=== PATIENT | female | born 1990 | race Caucasian/White ===

== ENCOUNTER 2016-08-19 18:44 | Emergency (ER) | payer OTHER ==
[2016-08-19 18:57] VITALS: RESP 20
[2016-08-19] MEDS ORDERED: IPRATROPIUM-ALBUTEROL 3 ML NEB INHALATION STA (19:12)
--- NOTE | 2016-08-19 19:12 | ED ---
General Adult HPI - General Chief complaint: Shortness of Breath Stated complaint: difficulty breathing Time Seen by Provider: 08/19/16 18:58 Source: patient, RN notes reviewed Mode of arrival: ambulatory Limitations: no limitations - History of Present Illness Initial comments: Patient is a 26-year-old female presents emergency room for evaluation of cough and congestion. Patient states she developed a cold for the past week. Recently she woke up this morning and feeling more short of breath after coughing. Patient states she had similar symptoms when she had pneumonia. Patient states she has had on and off hot flashes and chills. Patient denies any known fevers. Patient states she has a slight headache. Patient states she has throat pain every time she coughs. Patient denies nausea, vomiting, diarrhea, constipation, abdominal pain. Patient does state she smokes occasionally. Patient denies history of asthma. Patient states she is up-to- date in immunizations besides influenza vaccine. - Related Data Previous Rx's Medication Instructions Recorded Albuterol Inhaler [Ventolin Hfa 1 - 2 puff INHALATION Q6HR PRN #1 08/19/16 Inhaler] inhaler predniSONE 50 mg PO DAILY #4 tab 08/19/16 Allergies Allergy/AdvReac Type Severity Reaction Status Date / Time amoxicillin trihydrate Allergy Nausea & Verified 08/19/16 19:30 [From Augmentin] Vomiting potassium clavulanate Allergy Nausea & Verified 08/19/16 19:30 [From Augmentin] Vomiting Review of Systems ROS Statement: Those systems with pertinent positive or pertinent negative responses have been documented in the HPI. ROS Other: All systems not noted in ROS Statement are negative. 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 Limitations: no limitations General appearance: alert, in no apparent distress Head exam: Present: atraumatic, normocephalic, normal inspection Eye exam: Present: normal appearance ENT exam: Present: normal exam, normal oropharynx, mucous membranes moist, TM's normal bilaterally, normal external ear exam Neck exam: Present: normal inspection, full ROM. Absent: tenderness, lymphadenopathy Respiratory exam: Present: normal lung sounds bilaterally. Absent: respiratory distress Cardiovascular Exam: Present: regular rate, normal rhythm, normal heart sounds Extremities exam: Present: normal inspection Back exam: Present: normal inspection Neurological exam: Present: alert, oriented X3, CN II-XII intact, normal gait Psychiatric exam: Present: normal affect, normal mood Skin exam: Present: warm, dry, intact, normal color. Absent: rash Course Vital Signs 08/19/16 08/19/16 08/19/16 18:54 19:16 19:24 Temperature 98.4 F Pulse Rate 102 H 84 84 Respiratory 20 Rate Blood Pressure 144/63 O2 Sat by Pulse 95 Oximetry 08/19/16 21:07 Temperature 98.2 F Pulse Rate 94 Respiratory 20 Rate Blood Pressure 130/76 O2 Sat by Pulse 98 Oximetry Medical Decision Making - Medical Decision Making Patient's 26-year-old female presents to the emergency room for evaluation of cough and congestion. Influenza negative. Chest x-ray shows no significant findings. Will treat patient for bronchitis. Results discussed with patient. Return parameters discussed. Case discussed with Dr. Blackmon. - Lab Data Lab Results 08/19/16 Range/Units 19:26 Influenza Type A RNA Not Detected (Not Detectd) Influenza Type B (PCR) Not Detected (Not Detectd) - Radiology Data Radiology results: report reviewed, image reviewed Disposition Clinical Impression: Bronchitis Disposition: HOME SELF-CARE Condition: Good Instructions: Acute Bronchitis (ED) Additional Instructions: Take medications as needed. Please follow-up with primary care provider for reevaluation in 24-48 hours. If any new symptom arises or symptoms worsen, return to ER as soon as possible. Prescriptions: Albuterol Inhaler [Ventolin Hfa Inhaler] 1 - 2 puff INHALATION Q6HR PRN #1 inhaler PRN Reason: Shortness Of Breath predniSONE 50 mg PO DAILY #4 tab Referrals: Maxime Lyman DO [Primary Care Provider] - 1-2 days Time of Disposition: 20:53
--- NOTE | 2016-08-19 20:03 | XR ---
EXAMINATION TYPE: XR chest 2V DATE OF EXAM: 08/19/2016 7:35 PM COMPARISON: 04/02/2016 INDICATION: Cough TECHNIQUE: Single frontal view of the chest is obtained. FINDINGS: The heart size is normal. The pulmonary vasculature is normal. The lungs are clear. IMPRESSION: 1. No acute pulmonary process.
[2016-08-19] MEDS ORDERED: predniSONE 50 MG TAB PO STA (20:58)
[2016-08-19 21:09] VITALS: BP 130/76; PULSE 94; TEMP 98.2
== END 2016-08-19 21:09 | disposition home or self-care (01) ==
LOC: EC 18:44
DX: J20.9 Acute bronchitis, unspecified (principal); R51 Headache; Z87.01 Personal history of pneumonia (recurrent); Z88.0 Allergy status to penicillin; Z88.8 Allergy status to other drugs, medicaments and biological substances
CPT/HCPCS: 99285; 94640; 87502; 71020; J7512

== ENCOUNTER 2016-09-11 18:13 | Emergency (ER) | payer OTHER ==
[2016-09-11 18:22] VITALS: BP 131/74; PULSE 108; RESP 20; TEMP 97
--- NOTE | 2016-09-11 18:30 | ED ---
General Adult HPI - General Chief complaint: Upper Respiratory Infection Stated complaint: Congestion/ heart horton Time Seen by Provider: 09/11/16 18:20 Source: patient, RN notes reviewed Mode of arrival: ambulatory Limitations: no limitations - History of Present Illness Initial comments: This is a 26-year-old female who presents to the emergency department complaining of a sore throat and a cough suggestive per patient denies any chest pain or difficulty breathing. Patient states she thought her chest was a little bit tight earlier in the day but is cleared up at this point. Patient states she's is a smoker but she is trying to quit. Patient denies any fever or chills. Patient denies abdominal pain patient denies any nausea vomiting diarrhea. - Related Data Previous Rx's Medication Instructions Recorded Albuterol Inhaler [Ventolin Hfa 1 - 2 puff INHALATION Q6HR PRN #1 08/19/16 Inhaler] inhaler predniSONE 50 mg PO DAILY #4 tab 08/19/16 Azithromycin [Zithromax Tri-Frantz] 500 mg PO DAILY #3 tab 09/11/16 Allergies Allergy/AdvReac Type Severity Reaction Status Date / Time amoxicillin trihydrate Allergy Nausea & Verified 09/11/16 18:22 [From Augmentin] Vomiting potassium clavulanate Allergy Nausea & Verified 09/11/16 18:22 [From Augmentin] Vomiting Review of Systems ROS Statement: Those systems with pertinent positive or pertinent negative responses have been documented in the HPI. ROS Other: All systems not noted in ROS Statement are negative. 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 Patient is nontoxic and well- hydrated and is in mild distress. ENT: Neck is soft and supple. No significant lymphadenopathy is noted. Oropharynx is erythematous. Moist mucous membranes. Neck has full range of motion without eliciting any pain. EYES: The sclera were anicteric and conjunctiva were pink and moist. Extraocular movements were intact and pupils were equal round and reactive to light. Eyelids were unremarkable. PULMONARY: Unlabored respirations. Good breath sounds bilaterally. No audible rales rhonchi or wheezing was noted. CARDIOVASCULAR: There is a regular rate and rhythm without any murmurs gallops or rubs. ABDOMEN: Soft and nontender with normal bowel sounds. No palpable organomegaly was noted. There is no palpable pulsatile mass. SKIN: Skin is clear with no lesions or rashes and otherwise unremarkable. NEUROLOGIC: Patient is alert and oriented x3. Cranial nerves II through XII are grossly intact. Motor and sensory are also intact. Normal speech, volume and content. Symmetrical smile. MUSCULOSKELETAL: Normal extremities with adequate strength and full range of motion. No lower extremity swelling or edema. No calf tenderness. LYMPHATICS: No significant lymphadenopathy is noted PSYCHIATRIC: Normal psychiatric evaluation. Normal interpersonal interactions appears functionally intact in deals appropriately with others. No signs of depression. No signs of anxiety. Limitations: no limitations Course Vital Signs 09/11/16 18:20 Temperature 97 F L Pulse Rate 108 H Respiratory 20 Rate Blood Pressure 131/74 O2 Sat by Pulse 100 Oximetry Disposition Clinical Impression: Acute bronchitis, Pharyngitis Disposition: HOME SELF-CARE Condition: Good Prescriptions: Azithromycin [Zithromax Tri-Frantz] 500 mg PO DAILY #3 tab Referrals: Maxime Lyman DO [Primary Care Provider] - 1-2 days Time of Disposition: 18:30
== END 2016-09-11 18:45 | disposition home or self-care (01) ==
LOC: EC 18:13
DX: J20.9 Acute bronchitis, unspecified (principal); J02.9 Acute pharyngitis, unspecified; F17.200 Nicotine dependence, unspecified, uncomplicated; Z88.0 Allergy status to penicillin; Z88.8 Allergy status to other drugs, medicaments and biological substances
CPT/HCPCS: 99283

== ENCOUNTER 2017-01-09 20:40 | Emergency (ER) | payer OTHER ==
[2017-01-09 20:53] VITALS: BP 129/83; PULSE 98; RESP 18; TEMP 98.8
--- NOTE | 2017-01-09 21:59 | XR ---
EXAMINATION TYPE: XR ankle complete RT DATE OF EXAM: 01/09/2017 COMPARISON: NONE HISTORY: Pain TECHNIQUE: 3 views FINDINGS: Ankle mortise is anatomic. I see no fracture nor dislocation. There are plantar and Edwar s calcaneal spurs. There is mild soft tissue swelling around the ankle joint. IMPRESSION: No fracture. Mild soft tissue swelling.
--- NOTE | 2017-01-09 22:00 | XR ---
EXAMINATION TYPE: XR foot complete RT DATE OF EXAM: 01/09/2017 COMPARISON: NONE HISTORY: Pain and swelling TECHNIQUE: 3 views FINDINGS: Metatarsals are intact. I see no fracture nor dislocation. There is a plantar calcaneal spu r. There are no erosions. IMPRESSION: No acute abnormality of the right foot.
--- NOTE | 2017-01-09 22:11 | ED ---
Lower Extremity Injury HPI - General Chief Complaint: Extremity Injury, Lower Stated Complaint: ankle pain Time Seen by Provider: 01/09/17 20:59 Source: patient, family, RN notes reviewed Mode of arrival: ambulatory Limitations: no limitations - History of Present Illness Initial Comments: This is a 26 year old female with right ankle pain and swelling for 2 days. She reports she was playing badmitten and tripped and roller her ankle. She reports she felt a pop. She states over ej past 2 days she has been elevating and icing the ankle. Denies any peripheral paresthesisas. She also reports a possibility of . She states that she has no other associated symptoms. - Related Data Previous Rx's Medication Instructions Recorded Ibuprofen [Motrin] 600 mg PO Q6HR PRN #20 tab 01/09/17 Allergies Allergy/AdvReac Type Severity Reaction Status Date / Time amoxicillin trihydrate Allergy Nausea & Verified 01/09/17 20:53 [From Augmentin] Vomiting potassium clavulanate Allergy Nausea & Verified 01/09/17 20:53 [From Augmentin] Vomiting Review of Systems ROS Statement: Those systems with pertinent positive or pertinent negative responses have been documented in the HPI. ROS Other: All systems not noted in ROS Statement are negative. 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 Limitations: no limitations General appearance: alert, in no apparent distress Head exam: Present: atraumatic, normocephalic, normal inspection Eye exam: Present: normal appearance, PERRL, EOMI. Absent: scleral icterus, conjunctival injection, periorbital swelling ENT exam: Present: normal exam, mucous membranes moist Neck exam: Present: normal inspection. Absent: tenderness, meningismus, lymphadenopathy Respiratory exam: Present: normal lung sounds bilaterally. Absent: respiratory distress, wheezes, rales, rhonchi, stridor Cardiovascular Exam: Present: regular rate, normal rhythm, normal heart sounds. Absent: systolic murmur, diastolic murmur, rubs, gallop, clicks GI/Abdominal exam: Present: soft, normal bowel sounds. Absent: distended, tenderness, guarding, rebound, rigid Extremities exam: Present: normal inspection, full ROM, normal capillary refill , other (left ankle mild swelling nad pain over lateral malleoulus. ). Absent: tenderness, pedal edema, joint swelling, calf tenderness Back exam: Present: normal inspection Neurological exam: Present: alert, oriented X3, CN II-XII intact Psychiatric exam: Present: normal affect, normal mood Skin exam: Present: warm, dry, intact, normal color. Absent: rash Course Vital Signs 01/09/17 01/09/17 20:50 22:20 Temperature 98.8 F 98.8 F Pulse Rate 98 98 Respiratory 18 18 Rate Blood Pressure 129/83 129/83 O2 Sat by Pulse 98 98 Oximetry Medical Decision Making - Medical Decision Making This is a 26 year old female with right ankle pain and swelling for 2 days. She reports she was playing badmitten and tripped and roller her ankle. She reports she felt a pop. She states over ej past 2 days she has been elevating and icing the ankle. HCG is negative. Patient does have mild swelling over lateral malleoulus. Xrays reviewed, no fracture noted. Patient will be given an sourav wrap and discharged. Advised to follo lior with orthopedic. Patient agrees to treatment plan and will comply. - Lab Data Lab Results 01/09/17 Range/Units 21:12 Urine HCG, Qual Not Detected (Not Detectd) Disposition Clinical Impression: Ankle sprain Disposition: HOME SELF-CARE Condition: Good Instructions: Ankle Sprain (ED) Additional Instructions: Patient advised to rest, ice, elevate extremity. Wear Sourav wrap. Patient should follow-up with Orthopedic if symptoms continue to persist. Prescriptions: Ibuprofen [Motrin] 600 mg PO Q6HR PRN #20 tab PRN Reason: Pain Referrals: Maxime Lyman DO [Primary Care Provider] - 1-2 days Time of Disposition: 22:09
== END 2017-01-09 22:20 | disposition home or self-care (01) ==
LOC: EC 20:40
DX: S93.401A Sprain of unspecified ligament of right ankle, initial encounter (principal); Z88.0 Allergy status to penicillin; X50.9XXA Other and unspecified overexertion or strenuous movements or postures, initial encounter; Y93.89 Activity, other specified
CPT/HCPCS: 81025; 99283

== ENCOUNTER 2021-04-01 14:25 | Emergency (ER) | payer OTHER ==
[2021-04-01 15:01] VITALS: RESP 18
[2021-04-01 15:29] VITALS: BP 116/47; PULSE 66
[2021-04-01] MEDS ORDERED: KETOROLAC 15 MG/ML 1 ML VIAL IVP STA (15:45)
[2021-04-01] MEDS ORDERED: ONDANSETRON 4 MG/2 ML VIAL IVP STA (15:45)
[2021-04-01] MEDS ORDERED: SODIUM CHLORIDE 0.9% 1,000 ML IV STA (15:45)
[2021-04-01 16:13] LABS: Appearance,Urine Turbid (Clear); Bacteria,Urine Moderate /hpf; Bilirubin,Urine Negative (Negative); Blood,Urine Large (Negative); Color,Urine Dark Brown; Glucose,Urine (UA) Negative (Negative); Ketones,Urine Trace (Negative); Leukocyte Esterase,Urine Small (Negative); Mucus,Urine Many /hpf; Nitrite,Urine Negative (Negative); PH, Urine 5.5 (5.0-8.0); Protein,Urine 1+ (Negative); RBC,Urine >182 /hpf (0-5); Specific Gravity,Urine 1.022 (1.001-1.035); Squamous Epithelial Cell,Urine 8 /hpf (0-4); WBC,Urine 39 /hpf (0-5)
[2021-04-01 16:23] LABS: ALT 21 U/L (4-34); AST 22 U/L (14-36); African American GFR (CKD) >90 (>60 ml/min/1.73 sqM); Albumin 4.2 g/dL (3.5-5.0); Alkaline Phosphatase 114 U/L (38-126); Amylase 40 U/L (30-110); Anion Gap 9 mmol/L; Blood Urea Nitrogen 9 mg/dL (7-17); Calcium 9.7 mg/dL (8.4-10.2); Carbon Dioxide 23 mmol/L (22-30); Chloride 105 mmol/L (98-107); Glucose 116 mg/dL (74-99); Lipase 16 U/L (23-300); Non-African American GFR(CKD) >90 (>60 ml/min/1.73 sqM); Potassium 4.5 mmol/L (3.5-5.1); Sodium 137 mmol/L (137-145); Total Bilirubin 0.6 mg/dL (0.2-1.3); Total Protein 7.5 g/dL (6.3-8.2)
[2021-04-01 16:26] LABS: Basophils # (A) 0.1 k/uL (0-0.2); Basophils % (A) 0 %; Eosinophils # (A) 0.2 k/uL (0-0.7); Eosinophils % (A) 1 %; HCT 46.5 % (34.0-46.0); HGB 15.7 gm/dL (11.4-16.0); Lymphocytes # (A) 2.5 k/uL (1.0-4.8); Lymphocytes % (A) 13 %; MCH 28.6 pg (25.0-35.0); MCHC 33.8 g/dL (31.0-37.0); MCV 84.6 fL (80.0-100.0); Mean Platelet Volume 8.2; Monocytes # (A) 0.8 k/uL (0-1.0); Monocytes % (A) 5 %; Neutrophils # (A) 15.2 k/uL (1.3-7.7); Neutrophils % (A) 81 %; Platelet Count 427 k/uL (150-450); RDW 13.4 % (11.5-15.5); WBC 18.8 k/uL (3.8-10.6)
--- NOTE | 2021-04-01 16:51 | CT ---
EXAMINATION TYPE: CT abdomen pelvis w con DATE OF EXAM: 04/01/2021 COMPARISON: HISTORY: Abdominal pain, stabbing pain in back CT DLP: 2868.4 mGycm Automated exposure control for dose reduction was used. CONTRAST: Performed with IV Contrast, patient injected with 100 mL of Isovue 300. Lung bases are clear of infiltrate. There is no pleural effusion. Heart size is normal. There is no p ericardial effusion. Liver spleen stomach pancreas gallbladder appear normal. The bile ducts are not dilated. There is no adrenal mass. Kidneys show satisfactory contrast opacification. There is delayed right si de pyelogram. There is 4 mm obstructing calculus at the right ureteropelvic junction. There is no ret roperitoneal adenopathy. Uterus is anteverted. Bladder distends smoothly. There is no inguinal hernia . There is no free fluid in the pelvis. There is no mesenteric edema. There is no ascites or free air . There is no evidence of a bowel obstruction. There are 2 large cysts on the left ovary that measure 4 cm each. Appendix appears normal. Lumbar vertebra have normal spacing and alignment. Posterior elements are intact. There is no katie salma fracture. The bony pelvis is intact. Sacroiliac joints are intact. IMPRESSION: Obstructing calculus at the right ureteral pelvic junction with mild right-sided hydronephrosis. Large left-sided ovarian cysts.
[2021-04-01] MEDS ORDERED: cefTRIAXone IN SWFI 1,000 MG/10 ML SYRINGE IVP STA (16:58)
--- NOTE | 2021-04-01 16:59 | ED ---
General Adult HPI - General Chief complaint: Nausea/Vomiting/Diarrhea Stated complaint: weakness Time Seen by Provider: 04/01/21 15:33 Source: patient, RN notes reviewed Mode of arrival: ambulatory Limitations: no limitations - History of Present Illness Initial comments: Patient is a 30-year-old female that presents to emergency department complaining of right-sided low back pain with radiation to her groin. She notes that she does have a history of UTIs and kidney infections. She notes that she's also had a several day history of discomfort with urination. She notes that she's also been nauseous. She did denied any fevers vomiting or other a bdominal pain. Patient didn't appear to be in mild distress while lying in bed during the exam interview. She noted that her pain was approximately 9-10 out of 10 with no relief from any at home medications. She denied any aggravating or alleviating factors. She denied chest pain shortness of breath headache vomiting diarrhea constipation fever fatigue chills. - Related Data Previous Rx's Medication Instructions Recorded Ibuprofen [Motrin] 600 mg PO Q6HR PRN #20 tab 01/09/17 Ciprofloxacin HCl [Cipro] 500 mg PO Q12HR #20 tablet 04/01/21 Ketorolac [Toradol] 10 mg PO Q8HR #15 tab 04/01/21 Tamsulosin [Flomax] 0.4 mg PO DAILY #7 cap 04/01/21 Allergies Allergy/AdvReac Type Severity Reaction Status Date / Time amoxicillin trihydrate Allergy Nausea & Verified 04/01/21 14:57 [From Augmentin] Vomiting potassium clavulanate Allergy Nausea & Verified 04/01/21 14:57 [From Augmentin] Vomiting Review of Systems ROS Statement: Those systems with pertinent positive or pertinent negative responses have been documented in the HPI. ROS Other: All systems not noted in ROS Statement are negative. 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, ovarian cyst History of Any Multi-Drug Resistant Organisms: None Reported Past Surgical History: No Surgical Hx Reported, Orthopedic Surgery, Tonsillectomy Additional Past Surgical History / Comment(s): wrist surgery Past Psychological History: No Psychological Hx Reported Smoking Status: Current every day smoker Past Alcohol Use History: Occasional Past Drug Use History: None Reported General Exam Limitations: no limitations General appearance: alert, in no apparent distress, obese Head exam: Present: atraumatic, normocephalic, normal inspection Eye exam: Present: normal appearance, PERRL, EOMI. Absent: scleral icterus, co njunctival injection, periorbital swelling ENT exam: Present: normal exam, mucous membranes moist Neck exam: Present: normal inspection. Absent: tenderness, meningismus, lymphadenopathy Respiratory exam: Present: normal lung sounds bilaterally. Absent: respiratory distress, wheezes, rales, rhonchi, stridor Cardiovascular Exam: Present: regular rate, normal rhythm, normal heart sounds. Absent: systolic murmur, diastolic murmur, rubs, gallop, clicks GI/Abdominal exam: Present: soft, normal bowel sounds. Absent: distended, tenderness, guarding, rebound, rigid Extremities exam: Present: normal inspection, full ROM, normal capillary refill. Absent: tenderness, pedal edema, joint swelling, calf tenderness Neurological exam: Present: alert, oriented X3 Psychiatric exam: Present: normal affect, normal mood Skin exam: Present: warm, dry, intact, normal color. Absent: rash Course Vital Signs 04/01/21 04/01/21 04/01/21 14:58 15:28 17:03 Temperature 98 F 99.1 F 99 F Pulse Rate 61 66 Respiratory 18 18 Rate Blood Pressure 116/47 O2 Sat by Pulse 93 L 98 Oximetry Medical Decision Making - Medical Decision Making 30-year-old female complaining of right back pain with radiation to her groin, history of UTIs and kidney stone. Labs, CT of pelvis, 15 mg Toradol, 4 mg of Zofran ordered. Labs: White blood cells 18.8 CMP unremarkable, urine shows greater than 182 red blood cells 39 white blood cells and moderate bacteria. CT shows a 4 mm obstructing right renal calculi with mild hydronephrosis. 1 g of Rocephin ordered for kidney infection. Discussion with patient on discharge home versus admit. Patient states that she was to go home on antibiotic therapy as she is adamant about not staying in the hospital. Pain medication, Flomax, antibiotics we sent to pharmacy. Case discussed with Dr. Goldsmith, patient can discharge home on antibiotics with close follow-up to primary care and urologist as needed. - Lab Data Result diagrams: 04/01/21 15:47 04/01/21 15:47 Lab Results 04/01/21 04/01/21 04/01/21 Range/Units 15:47 15:47 15:47 WBC 18.8 H (3.8-10.6) k/uL RBC 5.50 H (3.80-5.40) m/uL Hgb 15.7 (11.4-16.0) gm/dL Hct 46.5 H (34.0-46.0) % MCV 84.6 (80.0-100.0) fL MCH 28.6 (25.0-35.0) pg MCHC 33.8 (31.0-37.0) g/dL RDW 13.4 (11.5-15.5) % Plt Count 427 (150-450) k/uL MPV 8.2 Neutrophils % 81 % Lymphocytes % 13 % Monocytes % 5 % Eosinophils % 1 % Basophils % 0 % Neutrophils # 15.2 H (1.3-7.7) k/uL Lymphocytes # 2.5 (1.0-4.8) k/uL Monocytes # 0.8 (0-1.0) k/uL Eosinophils # 0.2 (0-0.7) k/uL Basophils # 0.1 (0-0.2) k/uL Sodium 137 (137-145) mmol/L Potassium 4.5 (3.5-5.1) mmol/L Chloride 105 (98-107) mmol/L Carbon Dioxide 23 (22-30) mmol/L Anion Gap 9 mmol/L BUN 9 (7-17) mg/dL Creatinine 0.61 (0.52-1.04) mg/dL Est GFR (CKD-EPI)AfAm >90 (>60 ml/min/1.73 sqM) Est GFR (CKD-EPI)NonAf >90 (>60 ml/min/1.73 sqM) Glucose 116 H (74-99) mg/dL Calcium 9.7 (8.4-10.2) mg/dL Total Bilirubin 0.6 (0.2-1.3) mg/dL AST 22 (14-36) U/L ALT 21 (4-34) U/L Alkaline Phosphatase 114 (38-126) U/L Total Protein 7.5 (6.3-8.2) g/dL Albumin 4.2 (3.5-5.0) g/dL Amylase 40 (30-110) U/L Lipase 16 L (23-300) U/L Urine Color Dark Brown Urine Appearance Turbid H (Clear) Urine pH 5.5 (5.0-8.0) Ur Specific [place] 1.022 (1.001-1.035) Urine Protein 1+ H (Negative) Urine Glucose (UA) Negative (Negative) Urine Ketones Trace H (Negative) Urine Blood Large H (Negative) Urine Nitrite Negative (Negative) Urine Bilirubin Negative (Negative) Urine Urobilinogen 2.0 (<2.0) mg/dL Ur Leukocyte Esterase Small H (Negative) Urine RBC >182 H (0-5) /hpf Urine WBC 39 H (0-5) /hpf Ur Squamous Epith Cells 8 H (0-4) /hpf Urine Bacteria Moderate H (None) /hpf Urine Mucus Many H (None) /hpf Urine HCG, Qual (Not Detectd) 04/01/21 Range/Units 15:47 WBC (3.8-10.6) k/uL RBC (3.80-5.40) m/uL Hgb (11.4-16.0) gm/dL Hct (34.0-46.0) % MCV (80.0-100.0) fL MCH (25.0-35.0) pg MCHC (31.0-37.0) g/dL RDW (11.5-15.5) % Plt Count (150-450) k/uL MPV Neutrophils % % Lymphocytes % % Monocytes % % Eosinophils % % Basophils % % Neutrophils # (1.3-7.7) k/uL Lymphocytes # (1.0-4.8) k/uL Monocytes # (0-1.0) k/uL Eosinophils # (0-0.7) k/uL Basophils # (0-0.2) k/uL Sodium (137-145) mmol/L Potassium (3.5-5.1) mmol/L Chloride (98-107) mmol/L Carbon Dioxide (22-30) mmol/L Anion Gap mmol/L BUN (7-17) mg/dL Creatinine (0.52-1.04) mg/dL Est GFR (CKD-EPI)AfAm (>60 ml/min/1.73 sqM) Est GFR (CKD-EPI)NonAf (>60 ml/min/1.73 sqM) Glucose (74-99) mg/dL Calcium (8.4-10.2) mg/dL Total Bilirubin (0.2-1.3) mg/dL AST (14-36) U/L ALT (4-34) U/L Alkaline Phosphatase (38-126) U/L Total Protein (6.3-8.2) g/dL Albumin (3.5-5.0) g/dL Amylase (30-110) U/L Lipase (23-300) U/L Urine Color Urine Appearance (Clear) Urine pH (5.0-8.0) Ur Specific [place] (1.001-1.035) Urine Protein (Negative) Urine Glucose (UA) (Negative) Urine Ketones (Negative) Urine Blood (Negative) Urine Nitrite (Negative) Urine Bilirubin (Negative) Urine Urobilinogen (<2.0) mg/dL Ur Leukocyte Esterase (Negative) Urine RBC (0-5) /hpf Urine WBC (0-5) /hpf Ur Squamous Epith Cells (0-4) /hpf Urine Bacteria (None) /hpf Urine Mucus (None) /hpf Urine HCG, Qual Not Detected (Not Detectd) - Radiology Data Radiology results: report reviewed, image reviewed CT of the abdomen and pelvis: Obstructing calculus at the right ureteropelvic junction with mild right-sided hydronephrosis. Large left-sided ovarian cyst. Calculus measuring 4 mm. Disposition Clinical Impression: Pyelonephritis, Nephrolithiasis Disposition: HOME SELF-CARE Condition: Stable Instructions (If sedation given, give patient instructions): Kidney Infection (ED), Kidney Stones (ED) Additional Instructions: Please return to the Emergency Department if symptoms worsen or any other concerns. Take antibiotics as prescribed until complete. Use pain medication as prescribed. Follow-up primary care 1-2 days. Follow-up with urologist as soon as possible. Is patient prescribed a controlled substance at d/c from ED?: No Referrals: Maxime Lyman DO [Primary Care Provider] - 1-2 days Ashwin Crow MD [STAFF PHYSICIAN] - 1-2 days Time of Disposition: 17:34
[2021-04-01 17:03] VITALS: TEMP 99
[2021-04-01] MEDS ORDERED: HYDROmorphone 1 MG/ML 1 ML SYRINGE IVP STA (17:32)
[2021-04-01] MEDS ORDERED: ACET/COD 300 MG/30 MG STARTER PACK 6 TAB BTL PO STA (17:33)
== END 2021-04-01 18:12 | disposition home or self-care (01) ==
LOC: EC 14:25
DX: N10 Acute pyelonephritis (principal); N20.0 Calculus of kidney; Z87.440 Personal history of urinary (tract) infections; Z88.0 Allergy status to penicillin; Z88.1 Allergy status to other antibiotic agents; F17.200 Nicotine dependence, unspecified, uncomplicated
CPT/HCPCS: 99284; 96374; 96375 ×3; 96361; 36415; 80053; 82150; 83690; 85025; 81001; 81025; 87086; 74177; J2405; J0696; J1170; J1885; Q9967

== ENCOUNTER 2021-04-06 20:22 | Emergency (ER) | payer OTHER ==
--- NOTE | 2021-04-06 22:16 | XR ---
EXAMINATION: XR chest 2V DATE AND TIME: 04/06/2021 10:03 PM CLINICAL INDICATION: PHH; Cough/pain TECHNIQUE: Departmental protocol COMPARISON: 08/19/2016 FINDINGS: The overlying soft tissues are prominent. This fracture decreases radiographic sensitivity and specif icity for lung parenchymal findings. The arborization of the pulmonary vasculature bilaterally is les s well delineated on the present examination, compared to the prior, and this raises suspicion for th e possibility of atypical pneumonia. The pleural spaces are negative. The cardiac silhouette is not enlarged. The remainder of the mediastinal silhouette is unremarkable. The skeletal structures and soft tissues are negative for acute findings. IMPRESSION: Very subtle findings.
[2021-04-06] MEDS ORDERED: IPRATROPIUM-ALBUTEROL 3 ML NEB INHALATION STA (23:16)
[2021-04-06] MEDS ORDERED: DOXYCYCLINE 100 MG CAP PO STA (23:23)
--- NOTE | 2021-04-06 23:24 | ED ---
URI HPI - General Chief Complaint: Upper Respiratory Infection Stated Complaint: Cough Source: patient, family Mode of arrival: ambulatory Limitations: no limitations - History of Present Illness Initial Comments: 30-year-old female presents with complaints of nasal congestion, cough, sore throat, nausea and fever. She's had symptoms for 3 days. She denies previous history of asthma. She is a smoker. States she's been taking [id number] cough medicine without improvement. She reports the shortness of breath. No concern for . She is vaccinated against Covid. No other alleviating, precipitating or modifying factors - Related Data Previous Rx's Medication Instructions Recorded Ciprofloxacin HCl [Cipro] 500 mg PO Q12HR #20 tablet 04/01/21 Ketorolac [Toradol] 10 mg PO Q8HR #15 tab 04/01/21 Tamsulosin [Flomax] 0.4 mg PO DAILY #7 cap 04/01/21 Albuterol Sulfate [Proair Hfa] 1 - 2 puff INHALATION Q4HR PRN 04/06/21 #8.5 gm Doxycycline Monohydrate [Monodox] 100 mg PO Q12HR #20 cap 04/06/21 Allergies Allergy/AdvReac Type Severity Reaction Status Date / Time amoxicillin trihydrate Allergy Nausea & Verified 04/06/21 22:19 [From Augmentin] Vomiting potassium clavulanate Allergy Nausea & Verified 04/06/21 22:19 [From Augmentin] Vomiting Review of Systems ROS Statement: Those systems with pertinent positive or pertinent negative responses have been documented in the HPI. ROS Other: All systems not noted in ROS Statement are negative. 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 Absent: scleral icterus, conjunctival injection, periorbital swelling ENT exam: Present: normal exam, mucous membranes moist Neck exam: Present: normal inspection. Absent: tenderness, meningismus, lymphadenopathy Respiratory exam: Present: wheezes, other (tachypnia). Absent: respiratory distress, rales, rhonchi, stridor Cardiovascular Exam: Present: regular rate, normal rhythm, normal heart sounds. Absent: systolic murmur, diastolic murmur, rubs, gallop, clicks GI/Abdominal exam: Present: soft, normal bowel sounds. Absent: distended, tenderness, guarding, rebound, rigid Extremities exam: Present: normal inspection, full ROM, normal capillary refill. Absent: tenderness, pedal edema, joint swelling, calf tenderness Back exam: Present: normal inspection Neurological exam: Present: alert, oriented X3, CN II-XII intact Psychiatric exam: Present: normal affect, normal mood Skin exam: Present: warm, dry, intact, normal color. Absent: rash Course Vital Signs 04/06/21 04/07/21 04/07/21 20:41 00:03 00:15 Temperature 98.3 F Pulse Rate 88 88 88 Respiratory 20 Rate Blood Pressure 108/68 O2 Sat by Pulse 91 L Oximetry 04/07/21 00:21 Temperature 98.9 F Pulse Rate 99 Respiratory 18 Rate Blood Pressure 129/83 O2 Sat by Pulse 98 Oximetry Medical Decision Making - Medical Decision Making Upon arrival patient is placed into room 4. There was and physical exam was performed. Patient is swabbed for Covid and flu. Swab returns and is negative. Chest x-ray demonstrates atypical pneumonia. She is given a dose of doxycycline and a DuoNeb breathing treatment. Patient will be discharged home with albuterol inhaler and a course of doxycycline. Instructed follow up with her primary care doctor in 2-4 days. Return to the emergency room for any new or worsening symptoms patient was in agreement with the treatment plan was di scharged home in stable condition - Lab Data Lab Results 04/06/21 Range/Units 21:56 Influenza Type A (PCR) Not Detected (Not Detectd) Influenza Type B (PCR) Not Detected (Not Detectd) RSV (PCR) Not Detected (Not Detectd) SARS-CoV-2 (PCR) Not Detected (Not Detectd) Disposition Clinical Impression: Cough, Atypical pneumonia Disposition: HOME SELF-CARE Condition: Stable Instructions (If sedation given, give patient instructions): Pneumonia (ED) Additional Instructions: Please follow with your primary care doctor in 2-4 days. Return to the emergency room for any new or worsening symptoms Prescriptions: Doxycycline Monohydrate [Monodox] 100 mg PO Q12HR #20 cap Albuterol Sulfate [Proair Hfa] 1 - 2 puff INHALATION Q4HR PRN #8.5 gm PRN Reason: difficulty in breathing Is patient prescribed a controlled substance at d/c from ED?: No Referrals: Maxime Lyman DO [Primary Care Provider] - 1-2 days Time of Disposition: 23:24
[2021-04-07 00:21] VITALS: BP 129/83; PULSE 99; RESP 18; TEMP 98.9
== END 2021-04-07 00:24 | disposition home or self-care (01) ==
LOC: EC 20:22
DX: J18.9 Pneumonia, unspecified organism (principal); R06.02 Shortness of breath; F17.200 Nicotine dependence, unspecified, uncomplicated; Z88.1 Allergy status to other antibiotic agents; Z90.89 Acquired absence of other organs; Z20.822 Contact with and (suspected) exposure to COVID-19
CPT/HCPCS: 71046; 87636; 94640; 99283